=== PATIENT | female | born 1970 | race Caucasian/White ===

== ENCOUNTER 2017-08-21 15:59 | Emergency (ER) | payer OTHER ==
[2017-08-21 16:07] VITALS: BP 143/92
[2017-08-21] MEDS ORDERED: KETOROLAC TROMETHAMINE 60 MG/2 ML VIAL IM ONE ×2 (16:29→16:39)
--- NOTE | 2017-08-21 16:30 | ERNOTE ---
Back Pain ER HPI Date of Service: 08/21/17 Presenting Symptoms: injury/pain to back Time Seen by Provider: 08/21/17 16:10 Source: patient, RN notes reviewed Exam Limitations: no limitations Immunizations: IMMUNIZATION HX Immunizations Up to Date No: tetanus may be over 10 yrs ago Allergies/Adverse Reactions: Allergies penicillin G Allergy (Verified 09/15/16 10:04) Home Medications: HOME MEDICATIONS Ibuprofen [Motrin] 600 mg PO Q6H PRN #40 tab 09/15/16 [Last Taken Unknown] Bupropion HCl [Wellbutrin Xl] 300 mg PO 08/21/17 [Last Taken Unknown] Cyclobenzaprine HCl [Flexeril] 10 mg PO TID PRN #30 tab 08/21/17 [Last Taken Unknown] Dextroamphetamine/Amphetamine [Adderall 30 mg Tablet] 30 mg PO 08/21/17 [Last Taken Unknown] Ibuprofen 800 mg PO 08/21/17 [Last Taken Unknown] Ibuprofen [Motrin] 600 mg PO Q6H PRN #40 tab 08/21/17 [Last Taken Unknown] Levothyroxine Sodium [Synthroid] 150 mcg PO DAILY 08/21/17 [Last Taken Unknown] Sertraline HCl [Zoloft] 75 mg PO DAILY 08/21/17 [Last Taken Unknown] Narrative: 47 y/o female ambulatory to the ED for low back pain radiating into her left leg. This has been intermittent since she was in a [facility] 2 months ago, but has gotten worse for the past few days. She has been taking ibuprofen for pain. She has not yet had this evaluated. She has no prior history of back problems. Quality/Severity: Reports: severe, aching Location of pain: Reports: lower back, radiating to lf thigh/leg Activities at Onset: Reports: none Recent Injury?: Reports: possibly Possible Precipitating Factor: Reports: trauma Associated Symptoms: Denies: fever/chills, sweating, constipation/incontinence, nausea/vomiting, problems urinating, difficulty walking, lightheadedness, numbess/weakness in legs Prior Treament: Denies: recently seen, similar symptoms before Review of Systems - Review of Systems Constitutional: Present: See HPI EYE: Present: no symptoms reported ENT: Present: no symptoms reported Respiratory: Present: no symptoms reported Cardiology: Present: no symptoms reported Gastrointestinal/Abdominal: Present: no symptoms reported Genitourinary: Absent: dysuria, hematuria, other - possible Musculoskeletal: Present: back pain, muscle pain. Absent: neck pain, joint pain , joint swelling Skin: Absent: lesions, lumps, change in color Neurological: Present: See HPI Endocrine: Present: no symptoms reported Hematologic/Lymphatic: Present: no symptoms reported Psych: Present: no symptoms reported - Patient's Past Medical History Patient History - Medical: Anxiety, Hypothyroidism Patient History - Cardiac/Respiratory: No pertinent hx Patient History - Cancer: No Hx of Cancer Patient History - Surgical Procedures: , T & A Patient History - Other: None - Social History Living Situations: alone Abuse History: No History of abuse Psych History: Hx of Anxiety Alcohol Use: none Drug Use: none - Immunizations Immunizations Up to Date: No - tetanus may be over 10 yrs ago Physical Exam - Physical Exam General Appearance: Present: wd/wn, alert, mild distress Neck: Present: normal inspection, nontender, supple, full range of motion Respiratory: Present: no respiratory distress, normal breath sounds, no accessory muscle use, lungs clear Cardiovascular/Chest: Present: regular rate, rhythm, no murmur Gastrointestinal/Abdominal: Present: nontender, nondistended, soft Back Exam: Present: no CVA tenderness, no vertebral tenderness, decreased range of motion, other - Left lumbar paraspinal region muscle tenderness with palpation Extremity Exam: Present: normal inspection, no edema, decreased range of motion - Positive straight leg test at 45 degrees Neurological Exam: Present: alert, oriented, normal mood/affect, no motor/ sensory deficits Skin Exam: Present: normal color, warm/dry ED Progress - Vital Signs Patient's Vital Signs:: I have reviewed the patient's vital signs. Vital Signs: Vital Signs 08/21/17 16:00 Temperature 36.4 C L Pulse Rate 94 Respiratory 14 Rate Blood Pressure 143/92 O2 Sat by Pulse 97 Oximetry - X-Ray X-Ray #1 X-Ray: lumbosacral Interpretation: Interp. by me X-ray Comments: Degenerative changes without acute osseous abnormality - Progress/Reassessment Chief Complaint: Back Pain Progress:: Improved Departure Clinical Impression: Sciatica Qualifiers: Laterality: left Qualified Code(s): M54.32 - Sciatica, left side - Departure Disposition: Home Follow Up Needed Condition: Stable Instructions: Sciatica, [id number] Prescriptions: Cyclobenzaprine HCl [Flexeril] 10 mg PO TID PRN #30 tab PRN Reason: MUSCLE SPASMS Ibuprofen [Motrin] 600 mg PO Q6H PRN #40 tab PRN Reason: Pain
== END 2017-08-21 17:42 | disposition home or self-care (01) ==
LOC: ER 15:59
DX: M54.32 Sciatica, left side (principal); E03.9 Hypothyroidism, unspecified; F41.9 Anxiety disorder, unspecified